=== PATIENT | female | born 1965 | race Caucasian/White ===

== ENCOUNTER 2020-04-28 14:25 | Observation (INO) | payer BC ==
--- NOTE | 2020-04-28 14:46 | ED ---
General Adult HPI - General Chief complaint: Shortness of Breath Stated complaint: SOB Time Seen by Provider: 04/28/20 14:45 Source: patient Mode of arrival: ambulatory Limitations: no limitations - History of Present Illness Initial comments: Patient is a 55-year-old female presenting to the emergency department with a chief complaint of shortness of breath. Patient reports her was diagnosed with Covid on 04/17/2020. Patient reports that ever since she also continued to going to. Patient reports she has been having symptoms since then with an intermittent fever which she has been able to control. Patient also reported a bitter taste in her mouth along with a nonproductive cough. Patient reports a laceration to develop fatigue and some shortness of breath with exertion. She denies any chest pain nausea vomiting diarrhea. States she has been drinking plenty of fluids. Patient is concerned for pneumonia. Patient is not a smoker. She has no cardiac history. States she is otherwise healthy. - Related Data Home Medications Medication Instructions Recorded Confirmed Acetaminophen Tab [Tylenol Tab] 1,500 mg PO Q6HR PRN 04/28/20 04/28/20 Ascorbic Acid [Vitamin C] 500 mg PO DAILY 04/28/20 04/28/20 Cholecalciferol [Vitamin D3 (25 1,000 unit PO DAILY 04/28/20 04/28/20 Mcg = 1000 Iu)] Zinc 50 mg PO DAILY 04/28/20 04/28/20 Allergies Allergy/AdvReac Type Severity Reaction Status Date / Time hydrocodone [From Vicodin] AdvReac Rapid Verified 04/28/20 15:39 Heart Rate oxycodone [From Percocet] AdvReac Hallucinati Verified 04/28/20 15:39 ons Review of Systems ROS Statement: Those systems with pertinent positive or pertinent negative responses have been documented in the HPI. ROS Other: All systems not noted in ROS Statement are negative. Past Medical History Past Medical History: No Reported History History of Any Multi-Drug Resistant Organisms: None Reported Past Surgical History: Section, Cholecystectomy Past Psychological History: No Psychological Hx Reported Smoking Status: Never smoker Past Alcohol Use History: Rare Past Drug Use History: None Reported General Exam Limitations: no limitations General appearance: alert, in no apparent distress Head exam: Present: atraumatic, normocephalic, normal inspection Eye exam: Present: normal appearance, PERRL, EOMI Pupils: Present: normal accommodation ENT exam: Present: normal exam, normal oropharynx, mucous membranes moist, TM's normal bilaterally, normal external ear exam Neck exam: Present: normal inspection, full ROM. Absent: tenderness Respiratory exam: Present: normal lung sounds bilaterally. Absent: respiratory distress, wheezes, rales, rhonchi, stridor Cardiovascular Exam: Present: regular rate, normal rhythm, normal heart sounds GI/Abdominal exam: Present: soft. Absent: distended, tenderness, guarding, rebound Extremities exam: Present: normal inspection, full ROM, normal capillary refill. Absent: tenderness Back exam: Present: normal inspection, full ROM. Absent: tenderness, CVA tenderness (R), CVA tenderness (L) Neurological exam: Present: alert, oriented X3, CN II-XII intact, normal gait Psychiatric exam: Present: normal affect, normal mood Skin exam: Present: warm, dry, intact, normal color Course Vital Signs 04/28/20 04/28/20 04/28/20 14:38 15:26 16:22 Temperature 99.9 F H Pulse Rate 83 73 73 Respiratory 20 14 14 Rate Blood Pressure 149/95 130/80 128/80 O2 Sat by Pulse 96 93 L 94 L Oximetry 04/28/20 17:50 Temperature Pulse Rate Respiratory Rate Blood Pressure O2 Sat by Pulse 93 L Oximetry EKG Findings - EKG Comments: EKG Findings:: Sinus rhythm with no ST or T-wave changes. Ventricular rate 84, TX 174, QRS 90, QTc 425. Medical Decision Making - Medical Decision Making Patient is a 55-year-old female presenting to the emergency department with a chief complaint of shortness of breath. On physical examination, patient is clear to auscultation. The chest x-ray is unremarkable. Her oxygen saturation at rest appears to be around 95%. CBC CMP is unremarkable. Magnesium and d- dimer is within normal limits. Ambulatory oxygen levels tend to drop in the low 90s. She does have continuous dyspnea on exertion. Maxd pending Patient will be admitted for observation. Case discussed with Admitting is Dr Carranza - Lab Data Result diagrams: 04/28/20 15:07 04/28/20 15:07 Lab Results 04/28/20 04/28/20 04/28/20 Range/Units 15:07 15:07 16:14 WBC 4.8 (3.8-10.6) k/uL RBC 4.88 (3.80-5.40) m/uL Hgb 15.0 (11.4-16.0) gm/dL Hct 45.0 (34.0-46.0) % MCV 92.2 (80.0-100.0) fL MCH 30.7 (25.0-35.0) pg MCHC 33.3 (31.0-37.0) g/dL RDW 12.0 (11.5-15.5) % Plt Count 184 (150-450) k/uL Neutrophils % 65 % Lymphocytes % 22 % Monocytes % 8 % Eosinophils % 1 % Basophils % 1 % Neutrophils # 3.1 (1.3-7.7) k/uL Lymphocytes # 1.1 (1.0-4.8) k/uL Monocytes # 0.4 (0-1.0) k/uL Eosinophils # 0.1 (0-0.7) k/uL Basophils # 0.1 (0-0.2) k/uL D-Dimer 0.32 (<0.60) mg/L FEU Sodium 137 (137-145) mmol/L Potassium 4.3 (3.5-5.1) mmol/L Chloride 105 (98-107) mmol/L Carbon Dioxide 22 (22-30) mmol/L Anion Gap 10 mmol/L BUN 11 (7-17) mg/dL Creatinine 0.66 (0.52-1.04) mg/dL Est GFR (CKD-EPI)AfAm >90 (>60 ml/min/1.73 sqM) Est GFR (CKD-EPI)NonAf >90 (>60 ml/min/1.73 sqM) Glucose 97 (74-99) mg/dL Calcium 9.0 (8.4-10.2) mg/dL Magnesium (1.6-2.3) mg/dL Total Bilirubin 0.5 (0.2-1.3) mg/dL AST 54 H (14-36) U/L ALT 82 H (4-34) U/L Alkaline Phosphatase 126 (38-126) U/L Total Protein 7.2 (6.3-8.2) g/dL Albumin 4.3 (3.5-5.0) g/dL 04/28/20 Range/Units 16:14 WBC (3.8-10.6) k/uL RBC (3.80-5.40) m/uL Hgb (11.4-16.0) gm/dL Hct (34.0-46.0) % MCV (80.0-100.0) fL MCH (25.0-35.0) pg MCHC (31.0-37.0) g/dL RDW (11.5-15.5) % Plt Count (150-450) k/uL Neutrophils % % Lymphocytes % % Monocytes % % Eosinophils % % Basophils % % Neutrophils # (1.3-7.7) k/uL Lymphocytes # (1.0-4.8) k/uL Monocytes # (0-1.0) k/uL Eosinophils # (0-0.7) k/uL Basophils # (0-0.2) k/uL D-Dimer (<0.60) mg/L FEU Sodium (137-145) mmol/L Potassium (3.5-5.1) mmol/L Chloride (98-107) mmol/L Carbon Dioxide (22-30) mmol/L Anion Gap mmol/L BUN (7-17) mg/dL Creatinine (0.52-1.04) mg/dL Est GFR (CKD-EPI)AfAm (>60 ml/min/1.73 sqM) Est GFR (CKD-EPI)NonAf (>60 ml/min/1.73 sqM) Glucose (74-99) mg/dL Calcium (8.4-10.2) mg/dL Magnesium 1.9 (1.6-2.3) mg/dL Total Bilirubin (0.2-1.3) mg/dL AST (14-36) U/L ALT (4-34) U/L Alkaline Phosphatase (38-126) U/L Total Protein (6.3-8.2) g/dL Albumin (3.5-5.0) g/dL Disposition Clinical Impression: Shortness of breath, Dyspnea on exertion Disposition: ADMITTED IP TO THIS [facility] Condition: Stable Is patient prescribed a controlled substance at d/c from ED?: No Referrals: Valerie Thomas MD [Primary Care Provider] - 1-2 days Time of Disposition: 18:07
[2020-04-28] MEDS ORDERED: SODIUM CHLORIDE 0.9% 1,000 ML IV STA (15:01)
[2020-04-28] MEDS ORDERED: ACETAMINOPHEN TAB 500 MG TAB PO STA (15:01)
[2020-04-28 15:25] LABS: Basophils # (A) 0.1 k/uL (0-0.2); Basophils % (A) 1 %; Eosinophils # (A) 0.1 k/uL (0-0.7); Eosinophils % (A) 1 %; Lymphocytes # (A) 1.1 k/uL (1.0-4.8); Lymphocytes % (A) 22 %; MCH 30.7 pg (25.0-35.0); MCHC 33.3 g/dL (31.0-37.0); MCV 92.2 fL (80.0-100.0); Mean Platelet Volume 8.2; Monocytes # (A) 0.4 k/uL (0-1.0); Monocytes % (A) 8 %; Neutrophils # (A) 3.1 k/uL (1.3-7.7); Neutrophils % (A) 65 %; Platelet Count 184 k/uL (150-450); RBC 4.88 m/uL (3.80-5.40); WBC 4.8 k/uL (3.8-10.6)
[2020-04-28 15:37] LABS: ALT 82 U/L (4-34); AST 54 U/L (14-36); African American GFR (CKD) >90 (>60 ml/min/1.73 sqM); Albumin 4.3 g/dL (3.5-5.0); Alkaline Phosphatase 126 U/L (38-126); Anion Gap 10 mmol/L; Blood Urea Nitrogen 11 mg/dL (7-17); Carbon Dioxide 22 mmol/L (22-30); Chloride 105 mmol/L (98-107); Glucose 97 mg/dL (74-99); Non-African American GFR(CKD) >90 (>60 ml/min/1.73 sqM); Potassium 4.3 mmol/L (3.5-5.1); Sodium 137 mmol/L (137-145); Total Bilirubin 0.5 mg/dL (0.2-1.3); Total Protein 7.2 g/dL (6.3-8.2)
--- NOTE | 2020-04-28 16:04 | XR ---
EXAMINATION TYPE: XR chest 2V DATE OF EXAM: 04/28/2020 COMPARISON: NONE HISTORY: Difficulty breathing TECHNIQUE: 2 views FINDINGS: Heart and mediastinum are normal. Lungs are clear. Diaphragm is normal. Bony thorax appears normal. IMPRESSION: Normal chest.
[2020-04-28] MEDS ORDERED: NALOXONE 0.4 MG/ML 1 ML VIAL IV PRN (18:03)
[2020-04-28] MEDS ORDERED: ONDANSETRON 4 MG/2 ML VIAL IVP PRN (18:03)
[2020-04-28] MEDS ORDERED: IBUPROFEN 400 MG TAB PO PRN (18:03)
[2020-04-28] MEDS ORDERED: LORazepam 2 MG/ML INJ IV PRN (18:03)
[2020-04-28] MEDS ORDERED: ACETAMINOPHEN TAB 325 MG TAB PO PRN (18:03)
[2020-04-28] MEDS ORDERED: SODIUM CHLORIDE 0.9% 1,000 ML IV SCH (18:15)
[2020-04-28 19:51] VITALS: RESP 18
[2020-04-28] MEDS: guaiFENesin-DM 100-10MG/5ML 10 ML CUP PO SCH (23:58)
[2020-04-29] MEDS: guaiFENesin-DM 100-10MG/5ML 10 ML CUP PO SCH ×2 (03:25→10:09)
[2020-04-29 08:23] LABS: Basophils # (A) 0.1 k/uL (0-0.2); Basophils % (A) 1 %; Eosinophils # (A) 0.1 k/uL (0-0.7); Eosinophils % (A) 2 %; Lymphocytes # (A) 0.9 k/uL (1.0-4.8); Lymphocytes % (A) 20 %; MCH 31.3 pg (25.0-35.0); MCHC 33.4 g/dL (31.0-37.0); MCV 93.7 fL (80.0-100.0); Mean Platelet Volume 7.9; Monocytes # (A) 0.4 k/uL (0-1.0); Monocytes % (A) 8 %; Neutrophils # (A) 3.2 k/uL (1.3-7.7); Neutrophils % (A) 67 %; Platelet Count 187 k/uL (150-450); RDW 12.1 % (11.5-15.5); WBC 4.7 k/uL (3.8-10.6)
[2020-04-29 08:35] LABS: ALT 72 U/L (4-34); AST 47 U/L (14-36); African American GFR (CKD) >90 (>60 ml/min/1.73 sqM); Albumin 4.1 g/dL (3.5-5.0); Alkaline Phosphatase 118 U/L (38-126); Anion Gap 8 mmol/L; Blood Urea Nitrogen 17 mg/dL (7-17); C Reactive Protein 19.6 mg/L (<10.0); Carbon Dioxide 27 mmol/L (22-30); Chloride 103 mmol/L (98-107); Glucose 92 mg/dL (74-99); Non-African American GFR(CKD) >90 (>60 ml/min/1.73 sqM); Potassium 4.5 mmol/L (3.5-5.1); Sodium 138 mmol/L (137-145); Total Bilirubin 0.7 mg/dL (0.2-1.3); Total Protein 6.7 g/dL (6.3-8.2)
[2020-04-29 08:44] VITALS: BP 107/63; PULSE 65; TEMP 98
[2020-04-29] MEDS ORDERED: DEXAMETHASONE SOD PHOSPHATE 10 MG/ML 1 ML VIAL IV SCH (10:00)
--- NOTE | 2020-04-29 11:12 | P.CNPUL ---
History of Present Illness Consult date: 04/29/20 Requesting physician: Jet E Tere Reason for consult: other Chief complaint: Shortness of breath and cough. History of present illness: This is a 55-year-old female with no significant past medical history, patient was seen in the ER yesterday with a chief complaint of shortness of breath. B ack on 04/16/20, patient had multiple confusional symptoms including cough, fever, no chills, loss of sensation of taste and smell, intermittent episodes of diarrhea, generalized aches and pains, fatigue, and her at the time was tested positive for Covid 19,. She was seen in the ER yesterday, most of her constitutional symptoms have improved, however she continued to have some cough, and shortness of breath. Cough is dry hacking cough. She had low-grade fever, but no chills. And while in the ER she supposedly desaturated down to 89% on room air, patient was admitted PCR for coronary artery is pending, chest x-ray showed no evidence of pneumonia. But based on the clinical history and based on her exposure, the patient must have had Covid 19 infection unless for otherwise. The only reason she was admitted was mostly because of questionable desaturation while in the ER, looking at the vital signs, the lowest O2 saturation documented since yesterday was 91% on room air. Her O2 saturation has been ranging between 91% up to 96% on room air. Nonetheless, patient does have symptoms of cough, and some shortness of breath on exertion. She has vague headaches, low-grade fever, T-max was 99.3 on admission, no chills Review of Systems Constitutional: As noted in HPI, mostly because he shall symptoms have resolved except for shortness of breath, cough, low-grade fever HEENT: Loss of sensation of taste and smell. Some vague headaches, and congest ion. Pulmonary: Cough, shortness of breath on exertion. Cardiac: Negative GI: Had history of diarrhea about 2 weeks ago, however most of her GI symptoms have resolved. Genitourinary: Negative Musculoskeletal: Vague aches and pains Skin: Negative Neurologic: Mostly headaches Psychiatric: Negative Endocrine: No heat or cold intolerance, no symptoms of diabetes. Past Medical History Past Medical History: No Reported History History of Any Multi-Drug Resistant Organisms: None Reported Past Surgical History: Section, Cholecystectomy Past Anesthesia/Blood Transfusion Reactions: No Reported Reaction Past Psychological History: No Psychological Hx Reported Smoking Status: Never smoker Past Alcohol Use History: Rare Past Drug Use History: None Reported - Past Family History Father Additional Family Medical History / Comment(s): skin cancer Mother Family Medical History: No Reported History Medications and Allergies Home Medications Medication Instructions Recorded Confirmed Type Acetaminophen Tab [Tylenol Tab] 1,500 mg PO Q6HR PRN 04/28/20 04/28/20 History Ascorbic Acid [Vitamin C] 500 mg PO DAILY 04/28/20 04/28/20 History Cholecalciferol [Vitamin D3 (25 1,000 unit PO DAILY 04/28/20 04/28/20 History Mcg = 1000 Iu)] Zinc 50 mg PO DAILY 04/28/20 04/28/20 History Allergies Allergy/AdvReac Type Severity Reaction Status Date / Time hydrocodone [From Vicodin] AdvReac Rapid Verified 04/28/20 15:39 Heart Rate oxycodone [From Percocet] AdvReac Hallucinati Verified 04/28/20 15:39 ons Physical Exam Vitals: Vital Signs Temp Pulse Pulse Resp BP BP Pulse Ox 04/29/20 08:41 98.0 F 65 18 107/63 91 L 04/29/20 03:19 99.3 F 72 18 117/68 94 L 04/28/20 19:51 97.4 F L 69 18 130/77 95 04/28/20 19:01 98.8 F 70 14 125/84 93 L 04/28/20 17:50 93 L 04/28/20 16:22 73 14 128/80 94 L 04/28/20 15:26 73 14 130/80 93 L 04/28/20 14:38 99.9 F H 83 20 149/95 96 Intake and Output 04/28/20 04/29/20 04/29/20 22:59 06:59 14:59 Other: # Voids 1 1 Weight 79.379 kg Physical Exam: Revealed a 55-year-old female in no distress. Head: Atraumatic, normocephalic. HEENT:[Neck is supple.] [No neck masses.] [No thyromegaly.] [No JVD.] Chest: [Clear throughout, no crackles, no rhonchi, no wheezes.] Cardiac Exam: [Normal S1 and S2, no S3 gallop, no murmur.] Abdomen: [Soft, nontender, no megaly, no rebound, no guarding, normal bowel sounds.] Extremities: [No clubbing, no edema, no cyanosis.] Neurological Exam: [No focal neurologic deficit.] Alert and oriented 3. Psychiatric: Normal mood, affect and normal mental status examination. Skin: No rashes. Musculoskeletal: No deformities and no limitation in range of motion. Results - Laboratory Findings CBC and BMP: 04/29/20 07:57 04/29/20 07:57 PT/INR, D-dimer D-Dimer 0.32 mg/L FEU (<0.60) 04/28/20 16:14 Abnormal lab findings: Abnormal Labs 04/28/20 04/29/20 04/29/20 15:07 07:57 07:57 Lymphocytes # 0.9 L AST 54 H 47 H ALT 82 H 72 H C-Reactive Protein 19.6 H - Diagnostic Findings Chest x-ray: image reviewed (No evidence of infiltrate.) Assessment and Plan Assessment: Impression: Acute viral illness, considering her exposure to tested positive for covid 19, this is a covid 19 infection unless for otherwise. Recommendation: Clinically the patient seems to be doing well at present, Await the results of her Covid 19 PCR, Start patient on Decadron 6 mg IV push daily. Supportive care measures and symptomatic treatment. Consider discharging the patient home within the next 24 hours. Time with Patient: Greater than 30
[2020-04-29 12:17] LABS: Ferritin 536.5 ng/mL (10.0-291.0)
--- NOTE | 2020-04-29 22:26 | P.HPIM ---
History of Present Illness Please consider note as combined H and P and discharge summary Diagnoses Upper respiratory tract infection, mostly viral, high suspicion of covid infection due to her exposure to a positive case who is the Hospital course: This is a pleasant 55 years old female with no significant past medical history, presents with exertional dyspnea and low-grade fever of 99.3 on admission. Patient has been tested positive for Covid 19. When I saw the patient she was lying in bed comfortable no respiratory distress. No other complaints She also has WITH loss of sensation of taste and smell with some loose bowel movement and generalized myalgia and feeling fatigue. She has one episode of hypoxia and emergency room at 89%, which could be positive reading. Her oxygen saturation currently is 91-94% on room air. She is breathing quietly at 18 breaths per minute. Left showing no focal anemia of 0.9, with elevated inflammatory markers of 13 at 536, slightly elevated AST and ALT at 47 and 72 respectively, mildly elevated C-reactive protein at 19.6. D-dimer is negative at 0.32. Patient has been evaluated by pulmonary service and cleared her for discharge Patient was found stable and can be discharged home however he needs follow-up as an outpatient. Patient was instructed to follow up with PCP Dr. Thomas within one week and patient agrees. Also recommend to follow up patient with Covid 19 test Gen: patient is a AAOx3, no distress CVS: S1-S2, RRR, no murmur Lungs: B/L CTA, no wheezing Abdomen: soft, no distention, no tenderness, positive bowel sounds Extremity: no leg edema or induration Time spent more than 35 minutes Past Medical History Past Medical History: No Reported History History of Any Multi-Drug Resistant Organisms: None Reported Past Surgical History: Section, Cholecystectomy Past Anesthesia/Blood Transfusion Reactions: No Reported Reaction Past Psychological History: No Psychological Hx Reported Smoking Status: Never smoker Past Alcohol Use History: Rare Past Drug Use History: None Reported - Past Family History Father Additional Family Medical History / Comment(s): skin cancer Mother Family Medical History: No Reported History Medications and Allergies Home Medications Medication Instructions Recorded Confirmed Type Acetaminophen Tab [Tylenol] 1,500 mg PO Q6HR PRN 04/28/20 04/28/20 History Ascorbic Acid [Vitamin C] 500 mg PO DAILY 04/28/20 04/28/20 History Cholecalciferol [Vitamin D3 (25 1,000 unit PO DAILY 04/28/20 04/28/20 History Mcg = 1000 Iu)] Zinc 50 mg PO DAILY 04/28/20 04/28/20 History dexAMETHasone [Dexamethasone] 6 mg PO DAILY 7 Days #10 tablet 04/29/20 Rx [id number] 100-10MG/5ML 10 ml PO Q6H #70 ml 04/29/20 Rx [Robitussin DM] Allergies Allergy/AdvReac Type Severity Reaction Status Date / Time hydrocodone [From Vicodin] AdvReac Rapid Verified 04/28/20 15:39 Heart Rate oxycodone [From Percocet] AdvReac Hallucinati Verified 04/28/20 15:39 ons Physical Exam Vitals: Vital Signs Temp Pulse Pulse Resp BP BP Pulse Ox 04/29/20 08:41 98.0 F 65 18 107/63 91 L 04/29/20 03:19 99.3 F 72 18 117/68 94 L 04/28/20 19:51 97.4 F L 69 18 130/77 95 04/28/20 19:01 98.8 F 70 14 125/84 93 L 04/28/20 17:50 93 L 04/28/20 16:22 73 14 128/80 94 L 04/28/20 15:26 73 14 130/80 93 L 04/28/20 14:38 99.9 F H 83 20 149/95 96 Intake and Output 04/28/20 04/29/20 04/29/20 22:59 06:59 14:59 Intake Total 400 Balance 400 Intake: Oral 400 Other: # Voids 1 1 Weight 79.379 kg Results CBC & Chem 7: 04/29/20 07:57 04/29/20 07:57 Labs: Abnormal Lab Results - Last 24 Hours (Table) 04/28/20 04/29/20 04/29/20 Range/Units 15:07 07:57 07:57 Lymphocytes # 0.9 L (1.0-4.8) k/uL Ferritin 536.5 H (10.0-291.0) ng/mL AST 54 H 47 H (14-36) U/L ALT 82 H 72 H (4-34) U/L C-Reactive Protein 19.6 H (<10.0) mg/L Thrombosis Risk Factor Assmnt - Choose All That Apply Each Factor Represents 1 point: Age 41-60 years Other Risk Factors: No Thrombosis Risk Factor Assessment Total Risk Factor Score: 1 Thrombosis Risk Factor Assessment Level: Low Risk
== END 2020-04-29 14:50 | disposition home or self-care (01) ==
LOC: EC 14:25 → 1SOBS 18:02
PROVIDERS: ADMIT Internal Medicine; ATTEND Internal Medicine
DX: U07.1 COVID-19 (principal); J06.9 Acute upper respiratory infection, unspecified; R79.82 Elevated C-reactive protein (CRP); Z90.49 Acquired absence of other specified parts of digestive tract; Z98.891 History of uterine scar from previous surgery; Z80.8 Family history of malignant neoplasm of other organs or systems; Z79.52 Long term (current) use of systemic steroids; Z79.899 Other long term (current) drug therapy; Z88.5 Allergy status to narcotic agent
CPT/HCPCS: 96374; 96361; 99285; 36415; 93005; 85379; 80053 ×2; 82728; 83625; 83735; 85025 ×2; 86140; 71046; G0378 ×2; U0003; J1100